=== PATIENT | female | born 1995 | race Caucasian/White ===

== ENCOUNTER → 2019-04-29 | Outpatient (CLI) | payer BC ==
--- NOTE | 2019-04-29 10:57 | EKG ---
FACILITY: [facility] PATIENT NAME: SANDIP SHARMA : [id number] MR: [id number]: [id number] EXAM DATE: ORDERING PHYSICIAN: ROXANE BRANHAM TECHNOLOGIST: Test Reason : Blood Pressure : / mmHG Vent. Rate : 069 BPM Atrial Rate : 069 BPM P-R Int : 126 ms QRS Dur : 076 ms QT Int : 392 ms P-R-T Axes : 031 074 036 degrees QTc Int : 420 ms Sinus rhythm Possible left atrial enlargement No acute appearing findings No previous ECGs available Confirmed by LUIS A THORNE ([id number]) on 04/29/2019 12:14:47 PM Referred By: Confirmed By:LUIS A THORNE
== END ==
LOC: RESP 09:30
PROVIDERS: ATTEND Nurse Practitioner Family
DX: R42 Dizziness and giddiness (principal)
CPT/HCPCS: 93005

== ENCOUNTER → 2019-06-05 | Outpatient (CLI) | payer BC, MEDICAID ==
[~2019-06-05] MED LIST: PREN-127 PO
== END ==
LOC: LAB 14:32
PROVIDERS: ATTEND Obstetrics & Gynecology
DX: O26.899 Other specified pregnancy related conditions, unspecified trimester (principal)
CPT/HCPCS: 87088

== ENCOUNTER → 2019-06-18 | Outpatient (CLI) | payer BC, MEDICAID ==
[~2019-06-18] MED LIST changes: +ONDA4VIA3 IV
== END ==
LOC: LAB 10:53
PROVIDERS: ATTEND Obstetrics & Gynecology
DX: O60.00 Preterm labor without delivery, unspecified trimester (principal)
CPT/HCPCS: 87088; 87491; 87591